=== PATIENT | male | born 1965 | race African-American/Black ===

== ENCOUNTER 2019-04-17 01:03 | Emergency (ER) | payer BC, MEDICAID ==
[~2019-04-17] VITALS: Ht 172.7 cm; Wt 103.4 kg
[2019-04-17 01:22] VITALS: BP 194/104
[2019-04-17] MEDS ORDERED: cloNIDine HCL 0.1 MG TAB PO ONE (01:30)
== END 2019-04-17 03:53 | disposition home or self-care (01) ==
LOC: ER 01:04
DX: K05.00 Acute gingivitis, plaque induced (principal); K59.00 Constipation, unspecified; I10 Essential (primary) hypertension